=== PATIENT | female | born 1995 | race Caucasian/White ===

== ENCOUNTER 2017-06-01 16:34 | Emergency (ER) | payer BC ==
[~2017-06-01] VITALS: Ht 154.9 cm; Wt 65.8 kg
--- NOTE | 2017-06-01 17:00 | NUR ---
PATIENT PRESENTS TO ER C/O HEMATURIA, STATING SHE WAS GIVEN ANTIBIOTICS 3 DAYS AGO, WITH NO EFFECTIVENESS. PATIENT IS A/OX 4. BREATHING EVEN AND UNLABORED. NO SOB. VITALS STABLE. SAFETY AND COMFORT MEASURES IN PLACE. AWAITING MD ORDERS.
[2017-06-01 17:29] LABS: APPEARANCE,URINE Clear (CLEAR); BILIRUBIN,URINE Negative (NEGATIVE); BLOOD, URINE Moderate Ery/uL (NEGATIVE); COLOR,URINE Yellow (YELLOW); KETONES,URINE Negative (NEGATIVE); LEUKOCYTE ESTERASE ,URINE Negative (NEGATIVE); NITRITE, URINE Negative (NEGATIVE); PH,URINE 5.5 (5.0-8.0); PROTEIN,URINE Negative (NEGATIVE); UGLUCOSE Negative (NEGATIVE); UROBILINOGEN,URINE 0.2 EU/dL (0.2)
[2017-06-01 17:53] LABS: RBC,URINE 0-2 /HPF (0-2); SQUAMOUS EPITHELIAL CELL,UR Few /HPF (None Seen); WBC,URINE 0-2 /HPF (0-3)
[2017-06-01 17:54] LABS: BACTERIA,URINE Rare /HPF (None Seen)
--- NOTE | 2017-06-01 18:10 | NUR ---
Patient discharged to home in stable condition. Written and verbal after care instructions given. Patient verbalizes understanding of instruction.
[2017-06-01 18:11] VITALS: BP 106/48
== END 2017-06-01 18:13 | disposition home or self-care (01) ==
LOC: ER 16:36
DX: N39.0 Urinary tract infection, site not specified (principal); K90.0 Celiac disease
CPT/HCPCS: 81001; 84703; 99283; A4606; Z7610; 81000-TC